=== PATIENT | male | born 1970 | race Caucasian/White ===

== ENCOUNTER → 2022-05-26 | Day surgery (SDC) | payer OTHER ==
[~2022-05-26] VITALS: Ht 170.2 cm; Wt 104.3 kg
[~2022-05-26] MED LIST: BACTRIM DS TAB1 EACH PO; IBUPROFEN800 MG PO; NORCO 5-325 TA1 EACH PO; NORVASC 10MG TA10 MG PO; PRINIVIL20 MG PO; PROTONIX 40MG T40 MG PO; SUTENT37.5 MG PO; ZESTRIL40 MG PO
[2022-05-26 08:43] LABS: HCT 43.9 % (42.0-52.0); HGB 14.8 g/dl (13.2-18.0); MCH 29.6 pg (25.0-31.0); MCHC 33.7 g/dL (32.0-36.0); MCV 87.8 fL (78.0-100.0); MPV 10.3 fL (6.0-9.5); RDW 15.7 % (11.5-14.0)
[2022-05-26 08:44] LABS: WBC 10.2 K/uL (4.0-10.5)
[2022-05-26 08:58] LABS: ALBUMIN 3.8 g/dL (3.4-5.0); BILIRUBIN - TOTAL 0.9 mg/dL (0.2-1.0); BUN/CREAT RATIO (CALC) 12.7 RATIO; CREATININE 0.71 mg/dL (0.67-1.17); GLOBULIN (CALCULATION) 4.1 g/dL; POTASSIUM 4.2 mmol/L (3.5-5.1); TOTAL PROTEIN 7.9 g/dL (6.4-8.2)
== END | disposition home or self-care (01) ==
LOC: FAS 08:02
PROVIDERS: Surgery
DX: Z12.11 Encounter for screening for malignant neoplasm of colon (principal); K63.5 Polyp of colon; I10 Essential (primary) hypertension; J45.909 Unspecified asthma, uncomplicated; K21.9 Gastro-esophageal reflux disease without esophagitis; Z79.899 Other long term (current) drug therapy
CPT/HCPCS: 36415; 80053; J1610; J2704; J7120